=== PATIENT | male | born 1960 | race Caucasian/White ===

== ENCOUNTER 2017-06-13 11:43 | Emergency (ER) | payer SELFPAY ==
[~2017-06-13] VITALS: Ht 185.4 cm; Wt 77.1 kg
[2017-06-13] MEDS ORDERED: PRINIVIL10 MG PO ×2 (11:52→12:54)
[2017-06-13] MEDS ORDERED: NOVOLOG 70/30 M10 ML SC (11:53)
== END 2017-06-13 12:45 | disposition home or self-care (01) ==
LOC: ED 11:43
DX: E11.9 Type 2 diabetes mellitus without complications (principal); F17.200 Nicotine dependence, unspecified, uncomplicated; Z76.0 Encounter for issue of repeat prescription; Z79.899 Other long term (current) drug therapy; Z79.4 Long term (current) use of insulin

== ENCOUNTER 2017-07-14 13:47 | Emergency (ER) | payer SELFPAY ==
[~2017-07-14] VITALS: Wt 77.1 kg
[~2017-07-14 13:47] MED LIST: NOVOLOG 70/30 M10 ML SC; PRINIVIL10 MG PO
[2017-07-14] MEDS ORDERED: NATURE'S BLEND F1 MG PO (13:50)
== END 2017-07-14 14:07 | disposition left against medical advice (07) ==
LOC: ED 13:47
DX: Z76.0 Encounter for issue of repeat prescription (principal); Z79.899 Other long term (current) drug therapy

== ENCOUNTER → 2017-07-17 | Outpatient (CLI) | payer SELFPAY ==
[~2017-07-17] MED LIST changes: +NATURE'S BLEND F1 MG PO
== END | disposition home or self-care (01) ==
LOC: RESCLI 01:23
DX: E11.9 Type 2 diabetes mellitus without complications (principal); E53.8 Deficiency of other specified B group vitamins; Z79.4 Long term (current) use of insulin